=== PATIENT | male | born 1955 | race Caucasian/White ===

== ENCOUNTER → 2016-08-13 | Outpatient (CLI) | payer OTHER ==
[~2016-08-13] MED LIST: ASPI81 PO; CINN500C7 PO; CIPR500T4 PO; FISH1000 PO; GLUCTAB PO; RAMI10CA PO; SIMV40TA OR
[2016-08-13 09:55] LABS: ANION GAP 7 MEQ/L (5-15); AST (GOT) 17 U/L (15-37); BICARBONATE 28.3 MEQ/L (21.0-32.0); BLOOD UREA NITROGEN 16 MG/DL (7-18); CHLORIDE 104 MEQ/L (98-107); GLOMERULAR FILTRATION RATE 76 ML/MIN (>89); GLUCOSE,FASTING 210 MG/DL (74-99); POTASSIUM 4.7 MEQ/L (3.5-5.1); SODIUM (NA) 139 MEQ/L (136-145)
[2016-08-13 10:00] LABS: ALKALINE PHOSPHATASE 94 U/L (45-117); ALT (GPT) 31 U/L (12-78); HDL CHOLESTEROL 59.6 MG/DL (40.0-60.0); LDL CHOLESTEROL 81 MG/DL (0-99); TOTAL BILIRUBIN ADULT 0.5 MG/DL (0.2-1.0)
[2016-08-13 16:54] LABS: HEMOGLOBIN A1a 1.1 %; HEMOGLOBIN LA1C 2.6 %
== END ==
LOC: PLAB 06:42
PROVIDERS: ATTEND Family Medicine
DX: E11.65 Type 2 diabetes mellitus with hyperglycemia (principal); E78.2 Mixed hyperlipidemia
CPT/HCPCS: 36415; 80053; 80061; 83036

== ENCOUNTER → 2017-02-10 | Outpatient (CLI) | payer OTHER | LOC: PLAB 07:41 | PROVIDERS: ATTEND Urology | DX: R97.20 Elevated prostate specific antigen [PSA] (principal) | CPT/HCPCS: 36415; 84153 ==

== ENCOUNTER → 2017-03-27 | Outpatient (CLI) | payer OTHER ==
[2017-03-27 09:51] LABS: ALBUMIN 3.9 GM/DL (3.4-5.0); AST (GOT) 16 U/L (15-37); BICARBONATE 28.4 MEQ/L (21.0-32.0); BLOOD UREA NITROGEN 14 MG/DL (7-18); CHLORIDE 102 MEQ/L (98-107); CHOLESTEROL 154 MG/DL (120-200); CREATININE 0.99 MG/DL (0.60-1.30); GLOMERULAR FILTRATION RATE 77 ML/MIN (>89); GLUCOSE,FASTING 279 MG/DL (74-99); SODIUM (NA) 137 MEQ/L (136-145); TRIGLYCERIDES 72 MG/DL (42-150)
[2017-03-27 09:55] LABS: ALKALINE PHOSPHATASE 115 U/L (45-117); ALT (GPT) 35 U/L (12-78); CHOLESTEROL/ HDL RATIO 2.63 RATIO; HDL CHOLESTEROL 58.4 MG/DL (40.0-60.0); LDL CHOLESTEROL 81 MG/DL (0-99); TOTAL BILIRUBIN ADULT 0.6 MG/DL (0.2-1.0); TOTAL PROTEIN 7.3 GM/DL (6.4-8.2)
[2017-03-27 16:22] LABS: HEMOGLOBIN A1C 9.2 % (4.3-6.0)
== END ==
LOC: PLAB 07:25
PROVIDERS: ATTEND Family Medicine
DX: E78.2 Mixed hyperlipidemia (principal); E11.65 Type 2 diabetes mellitus with hyperglycemia; N31.2 Flaccid neuropathic bladder, not elsewhere classified
CPT/HCPCS: 36415; 80053; 80061; 83036